=== PATIENT | male | born 1950 ===

== ENCOUNTER 2024-10-22 05:47 | Day surgery (SDC) | payer OTHER ==
[2024-10-16 09:21] LABS: BASO % 0.4 % (0.1-1.2); EOS # 0.32 (0.04-0.54); EOS % 3.9 % (0.7-7.0); LYMPH # 1.09 (1.18-3.74); LYMPH % 13.1 % (19.3-53.1); MEAN PLATELET VOLUME 12.00 fl (9.4-12.4); MONO # 0.65 (0.24-0.82); MONO % 7.8 % (4.7-12.5); NEUT # 6.16 (1.56-6.13); NEUT % 74.2 % (34.0-71.1); RED CELL DISTRIBUTION WIDTH 13.5 % (11.6-14.4)
[2024-10-16 09:28] LABS: URINE APPEARANCE Clear; URINE BILIRRUBIN Negative (NEGATIVE); URINE BLOOD Negative; URINE COLOR Yellow; URINE GLUCOSE Negative (NEGATIVE); URINE KETONE Negative (NEGATIVE); URINE LEUKOCYTE Negative; URINE NITRATE Negative; URINE PROTEIN Negative (NEGATIVE); URINE UROBILINOGEN 0.2 E.U./dl
[2024-10-16 09:32] VITALS: BP 121/69
[2024-10-16 09:33] LABS: URINE BACTERIA 47.7 uL (0.0-1933); URINE EPITHELIAL CELLS 9.3 uL (0.0-38.8); URINE WBC 8.6 uL (0.0-23.2)
[2024-10-16 09:50] LABS: URINE CAST 0.58 uL (0.0-1.40); URINE RBC 1.1 uL (0.0-20.8)
[2024-10-16 09:52] LABS: INR 0.98
[2024-10-16 10:11] LABS: ALT/SGPT 24.0 U/L (12-78); AST/SGOT 9.0 U/L (15-37); BILIRUBIN TOTAL 0.52 mg/dL (0.3-1.2); BUN CREA RATIO 29.0 (7.0-25.0); CREATININE SERUM 0.83 mg/dL (0.70-1.30); GFR 90.82; GLOBULINA 3.2 G/DL (2.4-3.5); GLUCOSE FASTING 147.0 mg/dL (65-100); OSMOLALITY SERUM 292.0 MOSM/KG (275-295)
[~2024-10-22] VITALS: Ht 167.6 cm; Wt 72.6 kg
[~2024-10-22 05:47] MED LIST: BUPROPION XL450 MG PO; GLIMEPIRIDE4 M1 PO; METFORMIN HCL1000 M2 PO; ROSUVASTATIN CAL5 MG PO; ZESTRIL2.5 MG PO
[2024-10-22] MEDS ORDERED: CEFAZOLIN SODIUM 1,000 MG VIAL IV ONE (13:45)
[2024-10-22] MEDS ORDERED: MORPHINE SULFATE 4 MG/ML VIAL IV ONE ×2 (17:30→18:00)
== END 2024-10-22 19:00 | disposition home or self-care (01) ==
LOC: CIR.AMB 05:47
PROVIDERS: ATTEND Surgery
DX: K40.90 Unilateral inguinal hernia, without obstruction or gangrene, not specified as recurrent (principal)